=== PATIENT | female | born 1960 | race Caucasian/White ===

== ENCOUNTER 2018-07-25 15:24 | Outpatient (CLI) | payer BC ==
--- NOTE | 2018-07-25 16:45 | CT ---
CT LUMBAR SPINE NONCONTRAST: 07/25/18 HISTORY: Low back pain. Bilateral hip radiculopathy. FINDINGS: Vertebral body heights are maintained. Disc space narrowing at the L2-3, L4-5, and L5-S1 levels. Mini mal disc bulges at the L2-3 and L3-4 levels. No significant central canal stenosis. Osseous hypertrop hy results in mild stenosis of each neural foramen at the lumbosacral junction. There is also gas dis c phenomenon at this level. No acute fracture or dislocation are apparent. IMPRESSION: Mild degenerative changes throughout the lumbar spine as detailed above, including mild foraminal betty nosis at the Lumbosacral junction. No focal disc herniation or nerve root compression are apparent. POS: [id number]
== END 2018-07-25 15:25 | disposition home or self-care (01) ==
LOC: BICCT 15:24
PROVIDERS: ATTEND Neurological Surgery
DX: M54.5 Low back pain (principal); M47.816 Spondylosis without myelopathy or radiculopathy, lumbar region; M48.07 Spinal stenosis, lumbosacral region
CPT/HCPCS: 72131